=== PATIENT | male | born 1950 | race Caucasian/White ===

== ENCOUNTER 2017-07-09 07:57 | Day surgery (SDC) | payer BC ==
[2017-07-04 09:27] VITALS: BMI 21.9
[~2017-07-09 07:57] MED LIST: DEXAMETHASONE SOD PHOSPHATE 10 MG/ML 1 ML VIAL IV ONE; HEPARIN SODIUM,PORCINE 5,000 UNIT/ML 1 ML VIAL SQ ONE; MIDAZOLAM 2 MG/2 ML VIAL IV PRN; MORPHINE SULFATE 4 MG/ML SYRINGE IV PRN; ONDANSETRON 4 MG/2 ML VIAL IVP ONE; ceFAZolin IN SWFI 2 GM/20 ML SYRINGE IVP ONE
--- NOTE | 2017-07-09 08:58 | P.GSHP ---
History of Present Illness H&P Date: 07/09/17 Chief Complaint: Right inguinal hernia This is a 66-year-old male referred from Dr. Samina billings. Patient presents today for laparoscopic robotic-assisted repair of right inguinal hernia. Patient developed a mass in his right groin. Past Medical History Past Medical History: Eye Disorder, Hearing Disorder / Deafness, Musculoskeletal Disorder, Skin Disorder, Thyroid Disorder Additional Past Medical History / Comment(s): EARLY MACULAR DEGENERATION. CHI 1970, SL HEARING LOSS RT EAR. RT ING HERNIA CURRENT. PSORIATIC ARTHRITIS. History of Any Multi-Drug Resistant Organisms: None Reported Past Surgical History: Appendectomy, Ear Surgery, Hernia Repair, Orthopedic Surgery Additional Past Surgical History / Comment(s): COLONOSCOPIES. Past Anesthesia/Blood Transfusion Reactions: Motion Sickness Smoking Status: Current some day smoker - Past Family History Father Family Medical History: Cancer Medications and Allergies Home Medications Medication Instructions Recorded Confirmed Type Ergocalciferol (Vitamin D2) 50,000 unit PO FR 07/04/17 07/09/17 History [Vitamin D2] Etanercept [Enbrel] 25 mg SQ FR 07/04/17 07/04/17 History Levothyroxine Sodium [Tirosint] 50 mcg PO DAILY 07/04/17 07/09/17 History Vit A/Vit C/Vit E/Zinc/Copper 1 cap PO DAILY 07/04/17 07/04/17 History [ICAPS SOFTGEL] Allergies Allergy/AdvReac Type Severity Reaction Status Date / Time No Known Allergies Allergy Verified 07/09/17 08:36 Surgical - Exam Vital Signs Temp Pulse Resp BP Pulse Ox 98.2 F 72 18 144/80 98 07/09/17 08:41 07/09/17 08:41 07/09/17 08:41 07/09/17 08:41 07/09/17 08:41 - General well developed, no distress - Eyes PERRL - ENT normal pinna - Neck no masses - Respiratory normal expansion - Cardiovascular Rhythm: regular - Abdomen Abdomen: soft, non tender Hernia: inguinal (Reducible right inguinal hernia) Assessment and Plan Assessment: Right internal hernia. We'll perform laparoscopic robotic-assisted repair.
[2017-07-09] MEDS: LACTATED RINGERS 1,000 ML IV SCH (09:03)
[2017-07-09] MEDS ORDERED: ROCURONIUM BROMIDE 10 MG/ML 10 ML VIAL IV ONE (09:25)
[2017-07-09] MEDS ORDERED: LIDOCAINE 1% INJ 10MG/ML (20 ML MDV) ONE (09:25)
[2017-07-09] MEDS ORDERED: SUCCINYLCHOLINE CHLORIDE 100 MG/5 ML SYR IV ONE (09:25)
[2017-07-09] MEDS ORDERED: PROPOFOL 10 MG/ML 20 ML VIAL IV ONE (09:25)
[2017-07-09] MEDS ORDERED: GLYCOPYRROLATE 0.2 MG/ML 2 ML VIAL ONE (09:25)
[2017-07-09] MEDS ORDERED: NEOSTIGMINE 1 MG/ML 10 ML VIAL ONE (09:25)
[2017-07-09] MEDS ORDERED: MIDAZOLAM 2 MG/2 ML VIAL ONE (09:25)
[2017-07-09] MEDS ORDERED: fentaNYL (PF) 50 MCG/ML 2 ML AMP ONE (09:25)
[2017-07-09] MEDS ORDERED: BUPIVACAINE (PF) 0.5% 30 ML VIAL SQ ONE (09:52)
--- NOTE | 2017-07-09 10:31 | P.OP ---
Date of Procedure: 07/09/17 Preoperative Diagnosis: Right inguinal hernia Postoperative Diagnosis: Right inguinal hernia Procedure(s) Performed: Laparoscopic robotic-assisted repair of right inguinal hernia Anesthesia: SERGIO Surgeon: Leroy Cuba Estimated Blood Loss (ml): 5 Pathology: none sent Condition: stable Disposition: PACU Description of Procedure: he patient's placed on the operating table in the supine position. The patient received general anesthesia. The patient's abdomen was prepped and draped in usual sterile fashion. The skin was anesthetized 1% local Xylocaine at the incision sites. Using an 11 blade a skin incision was made at the umbilicus. The fascia was grasped with a Altura and then the peritoneal cavity was entered with the Veress needle. Position of the Veress needle was confirmed with a positive drop test. After adequate insufflation a 5 mm trocar was placed into the peritoneal cavity. The Laparoscope was placed the peritoneal cavity. And a robotic 8 mm trocar was placed in the right lateral position and then another 8 mm robotic trochars placed in the left lateral position. The original 5 mm trocar was exchanged for a 12 mm trocar. The patient was placed in reverse Trendelenburg and then the patient was docked to the robot. Next the peritoneum over top of the hernia was incised and then using blunt and sharp dissection and electrocautery the hernia sac was dissected free from the floor of the inguinal canal. The hernia sac was completely reduced into the peritoneal cavity. And then using the Pro brimmer blocker mesh the hernia was repaired. The peritoneum was then sutured with 20V lock suture. The patient was then undocked the robot. The needle was withdrawn from the peritoneal cavity. The umbilical trocar site was closed with 0 Ethibond suture. The skin was closed interrupted 3-0 Monocryl suture. Dermabond dressing was applied. Patient was sent to recovery in stable condition.
[2017-07-09 10:33] VITALS: TEMP 97.3
[2017-07-09] MEDS ORDERED: KETOROLAC 30 MG/ML 1 ML VIAL IVP ONE (10:47)
[2017-07-09 10:48] VITALS: RESP 18
[2017-07-09 12:48] VITALS: BP 162/78; PULSE 48
== END 2017-07-09 13:15 | disposition home or self-care (01) ==
LOC: OR 07:57
PROVIDERS: ATTEND Surgery
DX: K40.90 Unilateral inguinal hernia, without obstruction or gangrene, not specified as recurrent (principal); E07.9 Disorder of thyroid, unspecified; L40.50 Arthropathic psoriasis, unspecified; H35.30 Unspecified macular degeneration; F17.200 Nicotine dependence, unspecified, uncomplicated; Z79.899 Other long term (current) drug therapy
CPT/HCPCS: 49650; C1781; J2250; J1644; J1100; J2710; J2405; J2001; J3010; J1885; J0330; J2704; J0690

== ENCOUNTER → 2020-11-25 | Outpatient (CLI) | payer MEDICARE ==
--- NOTE | 2020-11-25 11:13 | XR ---
EXAMINATION TYPE: XR chest 2V DATE OF EXAM: 11/25/2020 COMPARISON: 02/22/2014 HISTORY: 70-year-old male with annual checkup TECHNIQUE: Frontal and lateral views of the chest are obtained. FINDINGS: Heart size is within normal limits. No focal consolidation, pneumothorax or pleural effusi on. Hyperaeration of lungs and flattening of the diaphragms with increased retrosternal airspace sugg estive of COPD. There is nodularity at the left lung base which is indeterminate. A CT of the chest m ay be helpful. This may represent scarring/tenting the diaphragm but underlying pulmonary nodule is n ot excluded. IMPRESSION: 1. Nodularity at the left lung base adjacent to the diaphragm is indeterminate. A CT of the chest wou ld be helpful. Underlying pulmonary nodule in patient with severe emphysematous changes is not exclud ed.
== END | disposition home or self-care (01) ==
LOC: RADXRMAIN 10:22
PROVIDERS: ATTEND Family Medicine
DX: R91.1 Solitary pulmonary nodule (principal); R06.00 Dyspnea, unspecified
CPT/HCPCS: 71046

== ENCOUNTER 2020-12-05 09:09 | Day surgery (SDC) | payer MEDICARE ==
[2020-12-01 16:26] VITALS: BMI 22.1
[~2020-12-05 09:09] MED LIST changes: +ACETAMINOPHEN TAB 500 MG TAB PO PRN; -DEXAMETHASONE SOD PHOSPHATE 10 MG/ML 1 ML VIAL IV ONE; +DEXAMETHASONE SOD PHOSPHATE 4 MG/ML 1 ML VIAL IV ONE; -HEPARIN SODIUM,PORCINE 5,000 UNIT/ML 1 ML VIAL SQ ONE; +HEPARIN SODIUM,PORCINE/PF 5,000 UNIT/0.5 ML SYRINGE SQ PRN; +HYDROmorphone 0.5 MG/0.5 ML SYRINGE IVP PRN; +LACTATED RINGERS 1,000 ML IV SCH; -MIDAZOLAM 2 MG/2 ML VIAL IV PRN; -MORPHINE SULFATE 4 MG/ML SYRINGE IV PRN; -ceFAZolin IN SWFI 2 GM/20 ML SYRINGE IVP ONE
[2020-12-05] MEDS ORDERED: LIDOCAINE 1% (10MG/ML) FOR IV START INTRADERMA ONE (10:04)
[2020-12-05] MEDS ORDERED: MIDAZOLAM 2 MG/2 ML VIAL IV ONE (10:22)
[2020-12-05] MEDS ORDERED: SCOPOLAMINE 1.5MG/72HR PATCH TRANSDERM ONE (11:06)
--- NOTE | 2020-12-05 11:38 | P.GSHP ---
History of Present Illness H&P Date: 12/05/20 Chief Complaint: Recurrent right inguinal hernia This 70-year-old male has developed a recurrent right inguinal hernia. Patient presents today for open repair Past Medical History Past Medical History: Eye Disorder, Hearing Disorder / Deafness, Musculoskeletal Disorder, Skin Disorder, Thyroid Disorder Additional Past Medical History / Comment(s): EARLY MACULAR DEGENERATION. CLOSED HEAD INJURY 1970 , SL HEARING LOSS RT EAR. RT ING HERNIA CURRENT. PSORIATIC ARTHRITIS. History of Any Multi-Drug Resistant Organisms: None Reported Past Surgical History: Appendectomy, Ear Surgery, Hernia Repair, Orthopedic Surgery Additional Past Surgical History / Comment(s): COLONOSCOPIES. RIGHT KNEE SURGERY. RIGHT INGUINAL HERNIA Past Anesthesia/Blood Transfusion Reactions: Motion Sickness Additional Past Anesthesia/Blood Transfusion Reaction / Comment(s): PAST HISTORY OF MOTION SICKNESS Smoking Status: Light tobacco smoker - Past Family History Father Family Medical History: Cancer Medications and Allergies Home Medications Medication Instructions Recorded Confirmed Type Ergocalciferol (Vitamin D2) 100,000 unit PO FR 07/04/17 12/05/20 History [Vitamin D2] Etanercept [Enbrel] 25 mg SQ TUFR 07/04/17 12/05/20 History Levothyroxine Sodium [Tirosint] 44 mcg PO DAILY 07/04/17 12/05/20 History [facility] Vitamin 1 tab PO DAILY 12/01/20 12/05/20 History Tadalafil [Cialis] 5 mg PO DAILY 12/01/20 12/05/20 History Allergies Allergy/AdvReac Type Severity Reaction Status Date / Time No Known Allergies Allergy Verified 12/05/20 09:50 Surgical - Exam Vital Signs Temp Pulse Resp BP Pulse Ox 97.4 F L 43 L 16 174/72 99 12/05/20 09:55 12/05/20 09:55 12/05/20 09:55 12/05/20 09:55 12/05/20 09:55 - General well developed, well nourished, no distress - Eyes PERRL - ENT normal pinna - Neck no masses - Respiratory normal expansion - Cardiovascular Rhythm: regular - Abdomen Abdomen: soft, non tender Hernia: inguinal (Recurrent) Assessment and Plan Assessment: Recurrent radial hernia. We'll perform open repair
[2020-12-05] MEDS ORDERED: KETAMINE 10 MG/ML 20 ML VIAL ONE (13:52)
[2020-12-05] MEDS ORDERED: fentaNYL (PF) 50 MCG/ML 2 ML AMP ONE (13:52)
[2020-12-05] MEDS ORDERED: SUCCINYLCHOLINE CHLORIDE 100 MG/5 ML SYR IV ONE (13:52)
[2020-12-05] MEDS ORDERED: GLYCOPYRROLATE 0.2 MG/ML 2 ML VIAL ONE (13:52)
[2020-12-05] MEDS ORDERED: PROPOFOL 10 MG/ML 20 ML VIAL IV ONE (13:52)
[2020-12-05] MEDS ORDERED: ROCURONIUM 10 MG/ML (5 ML VIAL) IV ONE (13:52)
[2020-12-05] MEDS ORDERED: LIDOCAINE 1% INJ 10MG/ML (20 ML MDV) ONE (13:52)
[2020-12-05] MEDS ORDERED: KETOROLAC 15 MG/ML 1 ML VIAL ONE (13:52)
[2020-12-05] MEDS ORDERED: MIDAZOLAM 2 MG/2 ML VIAL ONE (13:52)
[2020-12-05] MEDS ORDERED: NEOSTIGMINE 1 MG/ML 10 ML VIAL ONE (13:52)
[2020-12-05] MEDS ORDERED: LACTATED RINGERS 1,000 ML IV ONE (14:24)
[2020-12-05] MEDS ORDERED: BUPIVACAINE (PF) 0.5% 30 ML VIAL SQ ONE (14:41)
[2020-12-05 15:00] VITALS: TEMP 97.2
[2020-12-05 15:08] VITALS: RESP 16
--- NOTE | 2020-12-05 15:55 | P.OP ---
Date of Procedure: 12/05/20 Preoperative Diagnosis: Right indirect inguinal hernia Postoperative Diagnosis: Right indirect inguinal hernia Procedure(s) Performed: Open repair of right indirect inguinal hernia with mesh Anesthesia: SERGIO Surgeon: Leroy Cuba Estimated Blood Loss (ml): 5 Pathology: none sent Condition: stable Disposition: PACU Description of Procedure: DESCRIPTION OF PROCEDURE: The patient was placed in the supine position after receiving adequate anesthesia. A shunt groin was prepped and draped in the usual sterile fashion. A standard hernia incision was made and the subcutaneous tissues were divided with electrocautery. The fascia of the external oblique was exposed. A kendrick the fascia was made with #15 blade. The fascia was then opened with pair of Metzenbaum scissors. A Weitlaner retractor was placed in the wound and the cord structures were grasped and dissected free from the inguinal canal. A rubber Luba drain was placed around the cord structures. The hernial sac was seen on the anterior-medial portion of the cord and this was dissected free from the cord. The patient appeared to have a hernia and indirect space. A piece of Prolene mesh was cut to appropriate size and attached pubic tubercle and using 2-0 Prolene suture. The mesh was incised and wrapped around the cord structures and secured with 2-0 Prolene suture. The fascia extremity). Myra's fascia. Myra's Monocryl suture. Dermabond was applied. Patient top she will was sent to recovery in stable condition.
[2020-12-05 16:18] VITALS: BP 164/95; PULSE 41
== END 2020-12-05 17:05 | disposition home or self-care (01) ==
LOC: OR 09:09
PROVIDERS: ATTEND Surgery
DX: K40.90 Unilateral inguinal hernia, without obstruction or gangrene, not specified as recurrent (principal); E07.9 Disorder of thyroid, unspecified; H91.90 Unspecified hearing loss, unspecified ear; H35.30 Unspecified macular degeneration; Z87.820 Personal history of traumatic brain injury; L40.50 Arthropathic psoriasis, unspecified; Z90.89 Acquired absence of other organs; Z98.890 Other specified postprocedural states; F17.200 Nicotine dependence, unspecified, uncomplicated; Z80.9 Family history of malignant neoplasm, unspecified; Z79.899 Other long term (current) drug therapy; Z79.890 Hormone replacement therapy; Z79.891 Long term (current) use of opiate analgesic
CPT/HCPCS: 49505; C1781; J2250; J1100; J2710; J0690; J2405; J2001; J3010; J1885; J0330; J2704; J1644

== ENCOUNTER → 2020-12-20 | Outpatient (CLI) | payer MEDICARE ==
[2020-12-20 15:58] LABS: African American GFR (CKD) >90 (>60 ml/min/1.73 sqM); Blood Urea Nitrogen 26 mg/dL (9-20); Non-African American GFR(CKD) >90 (>60 ml/min/1.73 sqM)
--- NOTE | 2020-12-20 16:32 | CT ---
EXAMINATION TYPE: CT chest w con DATE OF EXAM: 12/20/2020 COMPARISON: Chest x-ray 12-14 HISTORY: pulmonary nodule CT DLP: 536 mGycm, Automated exposure control for dose reduction was used. CONTRAST: Performed injected with 100 mL of Isovue 300. TECHNIQUE: Axial images were obtained at 5 mm thick sections. Reconstructed images are reviewed on [employer] computer in the coronal plane. FINDINGS: Portion of the thyroid visualized is normal. No suspicious lung nodules or focal infiltrates are present. No abnormality to account for pulmonary nodule is identified. Some minimal thickening along the anterior cardiophrenic angle may be present p otentially could account for the finding. Recommend monitoring with chest x-ray. Follow-up study can be performed in 3 months. No enlarged mediastinal or hilar adenopathy is evident. The ascending aorta diameter at the level o f the main pulmonary artery is 3.9 cm. The main pulmonary artery diameter at the bifurcation is 2.[address] sections are obtained through the upper abdomen. Abdomen is essentially unremarkable. IMPRESSIONS: 1. There may be some minimal cardio phrenic angle infiltrate which may account for the finding on the chest x-ray. Suspicious nodule not identified. Recommendations: 1. Follow-up chest x-ray in 3 months.
== END | disposition home or self-care (01) ==
LOC: RADCTMAIN 14:41
PROVIDERS: ATTEND Family Medicine
DX: R91.1 Solitary pulmonary nodule (principal)
CPT/HCPCS: 82565; 84520; 71260; 36415; Q9967